=== PATIENT | female | born 1950 | race Caucasian/White ===

== ENCOUNTER → 2017-10-10 | Outpatient (CLI) | payer OTHER | LOC: FIMAGING 09:54 | PROVIDERS: ATTEND Family Medicine | DX: Z13.83 Encounter for screening for respiratory disorder NEC (principal); J43.2 Centrilobular emphysema; F17.200 Nicotine dependence, unspecified, uncomplicated; Z98.1 Arthrodesis status ==

== ENCOUNTER 2018-05-21 09:36 | Emergency (ER) | payer OTHER ==
[2018-05-21] MEDS ORDERED: NS 500 ML IV ONE (10:00)
--- NOTE | 2018-05-21 10:15 | EDPHY ---
H & P Stated Complaint: Weakness/low BP since injected stress test x 2D [employer]. Back pn. Time Seen by Provider: 05/21/18 10:00 HPI/ROS: CHIEF COMPLAINT: Weakness, low back pain HISTORY OF PRESENT ILLNESS: 68-year-old female with hypertension presents with weakness and low back pain. She underwent a nuclear stress test 2 days ago. During the stress test, she had fairly sudden onset of right lower back pain, associated with hypotension. She was given IV fluids and the hypotension resolved. However, since that procedure, she continues to feel weak and somewhat dizzy. The low back pain has persisted, but is has improved. The pain is located in the right lower back and increases with movement and deep inspiration. No shortness of breath or chest pain. She did not take her blood pressure medication this morning. REVIEW OF SYSTEMS: complete 10 point ROS reviewed and is negative except for the noted elements in the HPI - Personal History Current Tetanus/Diphtheria Vaccine: Yes Tetanus Vaccine Date: < 10 YEARS - Medical/Surgical History Hx Asthma: No Hx Chronic Respiratory Disease: No Hx Diabetes: No Hx Cardiac Disease: Yes Hx Renal Disease: No Hx Cirrhosis: No Hx Alcoholism: No Hx HIV/AIDS: No Hx Splenectomy or Spleen Trauma: Yes Other PMH: Stent x1, hypothyroid. P.E. SPLEENECTOMY, HYPERCHOLESTEREMIA, HTN, RLQ HERNIA,PACEMAKER: 05/11/2015, C6-7 FUSION, BLADDER SURG, - Social History Smoking Status: Current every day smoker Alcohol Use: Sober Drug Use: None - Physical Exam Exam: General Appearance: Alert, pleasant Eyes: Pupils equal and round, no conjunctival pallor or injection ENT, Mouth: Mucous membranes moist Neck: Normal inspection Respiratory: Lungs are clear to auscultation Cardiovascular: Regular rate and rhythm Gastrointestinal: Abdomen is soft and nontender Back: Right lumbar paraspinous tenderness, no midline tenderness Neurological: A&O, nonfocal exam Skin: Warm and dry, no rash Extremities: Nontender, no pedal edema Psychiatric: Mood and affect normal Constitutional: Initial Vital Signs Temperature (C) 37.4 C 05/21/18 09:43 Heart Rate 88 05/21/18 09:43 Respiratory Rate 16 05/21/18 09:43 Blood Pressure 95/58 L 05/21/18 09:43 O2 Sat (%) 94 05/21/18 09:43 O2 Delivery Mode Room Air Allergies/Adverse Reactions: ranitidine Allergy (Verified 05/21/18 09:42) Home Medications: Medication Instructions Recorded Aspirin [Aspirin 81mg (*)] 81 mg PO DAILY 05/02/15 Atorvastatin Calcium [Lipitor 20 20 mg PO HS 05/02/15 mg (*)] Cholecalciferol Vit D3 [Vitamin D3 2,000 units PO DAILY 05/02/15 (*)] Levothyroxine [Synthroid 50 mcg 50 mcg PO DAILY06 05/02/15 (*)] Lisinopril [Zestril 20 mg (*)] 20 mg PO DAILY 05/02/15 Magnesium Oxide [Magnesium Oxide 400 mg PO DAILY 05/02/15 400 mg (*)] HYDROcodone/APAP 10325 [[place] 1 tab PO Q6 PRN #14 tab 05/25/15 10325 (*)] Temazepam [Restoril 15 MG (*)] 15 mg PO HS PRN #30 cap 05/25/15 Amlodipine Besylate 05/21/18 Cefdinir [Omnicef (*)] 300 mg PO BID #20 cap 05/21/18 Medical Decision Making - Diagnostics EKG Interpretation: EKG interpreted by me reveals normal sinus rhythm, rate 76, no ST or T segment changes. Interpretation: Normal EKG ED Course/Re-evaluation: This patient presents with persistent right-sided back pain and generalized weakness after recent cardiac study. Stat EKG reveals no evidence of ischemia or dysrhythmia. Initial blood pressure is 95/58. Repeat blood pressure 120/ 70. Laboratory results discussed with the patient and reveal a urinary tract infection. Ceftriaxone 1 g IV given. Urine culture was sent. d/w pt, urged admission d/t borderline hypotension initially and patient with known hypertension. The patient declines admission. Clearly understands the risks and benefits of this decision. Omnicef prescribed. Encouraged to return for worsening symptoms or any concerns. Differential Diagnosis: Differential diagnosis for back pain includes muscular pain, herniated disc, epidural abscess, discitis, spine fracture, intra-abdominal causes and urinary tract infection. - Data Points Laboratory Results: Laboratory Results 05/21/18 10:17 05/21/18 10:17 Microbiology Results: MICROBIOLOGY 05/21/18 10:00 Urine,Clean Catch Urine Culture - Preliminary Gram Neg Sohail Nonlactose Ferm. Medications Given: Discontinued Medications Sodium Chloride (Ns) 500 mls @ 0 mls/hr IV EDNOW ONE; Wide Open PRN Reason: Protocol Stop: 05/21/18 10:01 Last Admin: 05/21/18 10:23 Dose: 500 mls Ceftriaxone Sodium/Dextrose (Rocephin 1 Gm (Premix)) 50 mls @ 100 mls/hr IV EDNOW ONE PRN Reason: Protocol Stop: 05/21/18 11:50 Last Admin: 05/21/18 11:33 Dose: 50 mls Point of Care Test Results: Chemistry 05/21/18 10:30 POC Troponin I 0.02 ng/mL ng/mL (0.00-0.08) Departure - Departure Disposition: Home, Routine, Self-Care Clinical Impression: Pyelonephritis Condition: Good Instructions: Kidney Infection (ED) Additional Instructions: Drink plenty of fluids. Return for worsening symptoms or any concerns. Follow-up with your physician in 2 days for recheck, sooner if worse. Referrals: GRECIA SHARMA [Primary Care Provider] - As per Instructions Prescriptions: Cefdinir [Omnicef (*)] 300 mg PO BID #20 cap
[2018-05-21 10:38] LABS: PLATELET COUNT 336 10^3/uL (150-400)
[2018-05-21 11:58] VITALS: BP 113/68
--- NOTE | 2018-05-21 14:27 | CPEKG ---
Test Reason : OPEN Blood Pressure : / mmHG Vent. Rate : 076 BPM Atrial Rate : 076 BPM P-R Int : 167 ms QRS Dur : 083 ms QT Int : 380 ms P-R-T Axes : 068 040 068 degrees QTc Int : 428 ms Sinus rhythm Confirmed by Johana Harrison ([id number]) on 05/21/2018 2:27:07 PM Referred By: Confirmed By:Johana Harrison
== END 2018-05-21 12:01 | disposition home or self-care (01) ==
DX: N12 Tubulo-interstitial nephritis, not specified as acute or chronic (principal); E86.9 Volume depletion, unspecified; I10 Essential (primary) hypertension; F17.200 Nicotine dependence, unspecified, uncomplicated
CPT/HCPCS: 93005; 96361; 96374; 99284; J0696; 84484-PO